=== PATIENT | male | born 1965 | race Hispanic/Latino ===

== ENCOUNTER 2017-09-18 10:55 | Day surgery (SDC) | payer OTHER, BC ==
[~2017-09-18] VITALS: Ht 165.1 cm; Wt 75.0 kg
[~2017-09-18 10:55] MED LIST: ALPRAZOLAM0.25 M2 PO; ASPIR 8181 M1 PO; ATORVASTATIN CA80 MG PO; BP MEDICATION; CLONIDINE HCL0.1 MG PO; COZAAR25 MG PO; FLOMAX0.4 MG PO; OMEPRAZOLE40 M1 PO; SLEEPING PILL; STIOLTO RESPIMAT4 GM IH; TRAZODONE HCL50 MG PO; TYLENOL EXTRA500 MG PO
[2017-09-18] MEDS ORDERED: COREG12.5 M1 PO (11:54)
[2017-09-18] MEDS ORDERED: VENTOLIN HFA18 GM IH (11:55)
[2017-09-18 12:01] VITALS: BP 200/95
[2017-09-18 12:04] LABS: HEMATOCRIT 36.1 % (38.0-50.0); MCV 97.8 FL (86-99)
[2017-09-18 12:18] LABS: ANION GAP 15 MEQ/L (2-14); CHLORIDE 96 MEQ/L (99-109); POTASSIUM 3.6 MEQ/L (3.7-5.4); SAMPLE HEMOLYSIS CHECK 0; SAMPLE ICTERIC CHECK 0; SAMPLE LIPEMIA CHECK 0; SODIUM 136 MEQ/L (136-147)
[2017-09-18 12:23] LABS: GFR ESTIMATE (CALCULATED) 12 mL/min/; GLUCOSE 137 mg/dL (70-99); UREA NITROGEN (BUN) 36 mg/dL (9-23)
[2017-09-18 12:42] LABS: METH RESISTANT S AUREUS PCR NEGATIVE (NEGATIVE)
[2017-09-18 12:52] LABS: PROBE CHECK PASS; SPECIMEN PROCESSING CONTROL PASS
[2017-09-18 13:42] VITALS: BP 190/87
[2017-09-18 16:10] LABS: POINT-OF-CARE METER ID UU13113675
[2017-09-18 16:36] VITALS: BP 167/81
[2017-09-18 17:09] VITALS: BP 166/78
== END 2017-09-18 17:14 | disposition home or self-care (01) ==
LOC: SDC 10:55
PROVIDERS: Ophthalmology Retina Specialist
DX: H44.002 Unspecified purulent endophthalmitis, left eye (principal); I12.0 Hypertensive chronic kidney disease with stage 5 chronic kidney disease or end stage renal disease; E11.22 Type 2 diabetes mellitus with diabetic chronic kidney disease; N18.6 End stage renal disease; E11.65 Type 2 diabetes mellitus with hyperglycemia; Z99.2 Dependence on renal dialysis; J44.9 Chronic obstructive pulmonary disease, unspecified; I25.2 Old myocardial infarction; F41.9 Anxiety disorder, unspecified; Z87.891 Personal history of nicotine dependence
CPT/HCPCS: 80048; 82948; 85014; 85018; 87116; 87205; 87206; 87641; J0690; J0713; J1100; J2250; J3010; J3370